=== PATIENT | female | born 1980 | race Hispanic/Latino ===

== ENCOUNTER 2023-12-09 15:36 | Outpatient (CLI) | payer OTHER, SELFPAY ==
--- NOTE | ~2023-12-09 | MR_ITS ---
EXAMINATION: MR cervical spine wo con DATE: 12/09/2023 16:08 INDICATION: Cervical radiculopathy. Neck pain. Right shoulder pain. TECHNIQUE: Magnetic resonance imaging (MRI) of the cervical spine was performed without intravenous c ontrast. COMPARISON: Cervical spine MRI 07/01/2019 FINDINGS: Alignment is normal. Vertebral body heights are normal. Intervertebral disc heights are nor mal. The spinal cord signal intensity is normal. The following disc levels are specifically discussed : C2-C3: The disc does not extend beyond the endplate margin. There is no uncovertebral joint osteoarth ritis. There is mild left facet joint osteoarthritis. There is no neural foraminal stenosis. There is no central canal stenosis. C3-C4: The disc does not extend beyond the endplate margin. There is no uncovertebral joint osteoarth ritis. There is moderate bilateral facet joint osteoarthritis. There is no neural foraminal stenosis. There is no central canal stenosis. C4-C5: The disc does not extend beyond the endplate margin. There is no uncovertebral joint osteoarth ritis. There is mild bilateral facet joint osteoarthritis. There is no neural foraminal stenosis. The re is no central canal stenosis. C5-C6: The disc does not extend beyond the endplate margin. There is mild bilateral uncovertebral carmine nt osteoarthritis. There is moderate bilateral facet joint osteoarthritis. There is no neural foramin al stenosis. There is no central canal stenosis. C6-C7: The disc does not extend beyond the endplate margin. There is no uncovertebral joint osteoarth ritis. There is mild bilateral facet joint osteoarthritis. There is no neural foraminal stenosis. The re is no central canal stenosis. C7-T1: The disc does not extend beyond the endplate margin. There is no uncovertebral joint osteoarth ritis. There is severe bilateral facet joint osteoarthritis. There is mild bilateral neural foraminal stenosis. There is no central canal stenosis. IMPRESSION: 1. Mild cervical spondylosis, stable from 07/01/2019. Reviewed, dictated and finalized at location A.
== END 2023-12-09 15:37 ==
PROVIDERS: PCP Family Medicine; Visit Provider Orthopaedic Surgery
DX: M43.02 Spondylolysis, cervical region (principal)
CPT/HCPCS: 72141

== ENCOUNTER 2024-01-03 07:39 | Outpatient (CLI) | payer OTHER, SELFPAY ==
--- NOTE | ~2024-01-03 | MR_ITS ---
EXAMINATION: MR chest wo/w con DATE: 01/03/2024 08:59 INDICATION: Paresthesia of skin. Neck pain. Shoulder pain. TECHNIQUE: Magnetic resonance imaging (MRI) of the right brachial plexus was performed without and wi th 18 mL MultiHance intravenous contrast. COMPARISON: Right shoulder radiographs 11/24/2023 FINDINGS: There is no abnormal mass or lymphadenopathy. The musculature is normal. There is no abnorm al contrast enhancement. There is mild right acromioclavicular joint osteoarthritis. IMPRESSION: 1. Normal brachial plexus. Reviewed, dictated and finalized at location A. IMPRESSION: 1. Normal brachial plexus.
== END 2024-01-03 07:40 | disposition home or self-care (01) ==
PROVIDERS: PCP Family Medicine; Visit Provider Orthopaedic Surgery
DX: R20.2 Paresthesia of skin (principal); M25.511 Pain in right shoulder; G89.29 Other chronic pain
CPT/HCPCS: 71552; A9577